=== PATIENT | male | born 1955 | race Caucasian/White ===

== ENCOUNTER 2016-07-28 09:41 | Inpatient (IN) | payer OTHER ==
[~2016-07-28] VITALS: Ht 185.4 cm; Wt 83.4 kg
[2016-07-28 10:12] VITALS: BP 129/88; PULSE 92; RESP 20; TEMP 98.3; O2SAT 95
[2016-07-28 10:27] LABS: AUTOMATED NEUTROPHIL # 8.5 TH/MM3 (1.8-7.7); BASOPHIL % 0.4 % (0.0-2.0); EOSINOPHIL # 0.1 TH/MM3 (0-0.4); EOSINOPHIL % 0.9 % (0.0-4.0); HEMATOCRIT 41.8 % (39.0-51.0); HEMO FLAGS DIFF FINAL; LYMPH % 18.5 % (9.0-44.0); LYMPHOCYTE # 2.2 TH/MM3 (1.0-4.8); MEAN CELL VOLUME 87.8 FL (80.0-100.0); MEAN CORPUSCULAR HEMOGLOBIN 30.4 PG (27.0-34.0); MEAN CORPUSCULAR HGB CONC 34.6 % (32.0-36.0); NEUT % 72.2 % (16.0-70.0); PLATELET COUNT 187 TH/MM3 (150-450); RED BLOOD COUNT 4.76 MIL/MM3 (4.50-5.90); RED CELL DISTRIBUTION WIDTH 13.3 % (11.6-17.2); WHITE BLOOD COUNT 11.8 TH/MM3 (4.0-11.0)
[2016-07-28 10:40] LABS: ALT (GPT) 32 U/L (12-78); ANION GAP 7 MEQ/L (5-15); AST (GOT) 16 U/L (15-37); BICARBONATE 25.6 MEQ/L (21.0-32.0); BLOOD UREA NITROGEN 19 MG/DL (7-18); CHLORIDE 106 MEQ/L (98-107); GLOMERULAR FILTRATION RATE 53 ML/MIN (>89); SODIUM (NA) 139 MEQ/L (136-145)
[2016-07-28 10:43] LABS: ALKALINE PHOSPHATASE 71 U/L (45-117); TOTAL BILIRUBIN ADULT 0.7 MG/DL (0.2-1.0)
--- NOTE | 2016-07-28 10:53 | PD ---
HPI Chief Complaint: Psychiatric Symptoms Time Seen by Provider: 09:57 Travel History International Travel<30 days: No Contact w/Intl Traveler<30days: No Traveled to known affect area: No History of Present Illness HPI Patient 60-year-old male presents emergency department on Cabrera act. Patient has a history of dementia and therefore most of the history is obtained from medical records and Cabrera act form. Apparently the patient has been wandering in his usp and has been "exit seeking". His Cabrera acted by clinical psychologist today for fears of patient being gravely disabled and imminent self -harm. He also has a form with him from the usp is that she's been discharged. Patient is oriented to self only. Denies any physical complaints: Chest pain shortness of breath abdominal pain nausea vomiting diarrhea extremity pain. PFSH Past Medical History Diabetes: Yes Patient Takes Glucophage: Yes Parkinson's Disease: Yes Psychiatric: Yes Tetanus Vaccination: < 5 Years Past Surgical History Surgical History: No Previous Surgery Social History Alcohol Use: No Tobacco Use: No Substance Use: No Allergies-Medications (Allergen,Severity, Reaction): Coded Allergies: No Known Allergies (Unverified , 07/28/16) Reported Meds & Prescriptions Reported Meds & Active Scripts Active Reported Tylenol (Acetaminophen) 325 Mg Tab 650 Mg PO Q4H PRN Thera M Plus (Multivitamins/Minerals Therapeutic) 1 Tab 1 Tab PO DAILY Seroquel Xr (Quetiapine Fumarate) 1 Each [id number] 25 Mg PO HS Colace Clear (Docusate Sodium) 50 Mg Cap 100 Mg PO DAILY Cymbalta DR (Duloxetine HCl) 60 Mg Capdr 60 Mg PO DAILY Carbidopa-Levodopa 25-100 Mg Tab 1 Tab PO Q8HR Aspir-81 (Aspirin) 81 Mg Tabdr 81 Mg PO DAILY Amlodipine (Amlodipine Besylate) 10 Mg Tab 10 Mg PO DAILY Ativan (Lorazepam) 0.5 Mg Tab 0.5 Mg PO TID PRN Lactulose Liq (Lactulose) 10 Gm/15 Ml Soln 60 Ml PO Q12HR Review of Systems ROS Limitations: Other: (dementia) Physical Exam Narrative GENERAL: Well-developed well-nourished no apparent distress. SKIN: No bruising or lacerations no wounds on his person. HEAD: Atraumatic. Normocephalic. EYES: Pupils equal and round. No scleral icterus. No injection or drainage. ENT: No nasal bleeding or discharge. Mucous membranes pink and moist. NECK: Trachea midline. No JVD. CARDIOVASCULAR: Regular rate and rhythm. No murmur appreciated. RESPIRATORY: No accessory muscle use. Clear to auscultation. Breath sounds equal bilaterally. GASTROINTESTINAL: Abdomen soft, non-tender, nondistended. Hepatic and splenic margins not palpable. MUSCULOSKELETAL: No obvious deformities. No clubbing. No cyanosis. No edema. NEUROLOGICAL: Awake and alert oriented to self only, follows commands in all 4 extremities.. No obvious cranial nerve deficits. Motor grossly within normal limits. Normal speech. PSYCHIATRIC: Flat affect, no insight Data Data Last Documented VS Vital Signs Date Time Temp Pulse Resp B/P Pulse Ox O2 Delivery O2 Flow Rate FiO2 07/28/16 12:27 80 20 130/78 97 07/28/16 10:12 98.3 Orders Complete Blood Count With Diff (07/28/16 09:57) Comprehensive Metabolic Panel (07/28/16 09:57) Psych Screen (07/28/16 09:57) Drug Screen, Random Urine (07/28/16 09:57) Alcohol (Ethanol) (07/28/16 09:57) Labs Laboratory Tests Test 07/28/16 10:15 White Blood Count 11.8 TH/MM3 Red Blood Count 4.76 MIL/MM3 Hemoglobin 14.5 GM/DL Hematocrit 41.8 % Mean Corpuscular Volume 87.8 FL Mean Corpuscular Hemoglobin 30.4 PG Mean Corpuscular Hemoglobin 34.6 % Concent Red Cell Distribution Width 13.3 % Platelet Count 187 TH/MM3 Mean Platelet Volume 9.2 FL Neutrophils (%) (Auto) 72.2 % Lymphocytes (%) (Auto) 18.5 % Monocytes (%) (Auto) 8.0 % Eosinophils (%) (Auto) 0.9 % Basophils (%) (Auto) 0.4 % Neutrophils # (Auto) 8.5 TH/MM3 Lymphocytes # (Auto) 2.2 TH/MM3 Monocytes # (Auto) 0.9 TH/MM3 Eosinophils # (Auto) 0.1 TH/MM3 Basophils # (Auto) 0.0 TH/MM3 CBC Comment DIFF FINAL Differential Comment Sodium Level 139 MEQ/L Potassium Level 4.0 MEQ/L Chloride Level 106 MEQ/L Carbon Dioxide Level 25.6 MEQ/L Anion Gap 7 MEQ/L Blood Urea Nitrogen 19 MG/DL Creatinine 1.37 MG/DL Estimat Glomerular Filtration 53 ML/MIN Rate Random Glucose 110 MG/DL Calcium Level 8.9 MG/DL Total Bilirubin 0.7 MG/DL Aspartate Amino Transf 16 U/L (AST/SGOT) Alanine Aminotransferase 32 U/L (ALT/SGPT) Alkaline Phosphatase 71 U/L Total Protein 7.7 GM/DL Albumin 4.0 GM/DL Ethyl Alcohol Level LESS THAN 3 MG/DL MDM Medical Decision Making Medical Screen Exam Complete: Yes Emergency Medical Condition: Yes Differential Diagnosis Parkinsonian dementia, Cabrera act, anemia, urinary tract infection. Narrative Course Patient 60-year-old male presents emergency department on Cabrera act for wandering. Patient has a Cabrera act filled out by clinical psychologist. He has a history of parkinsonian dementia and is unable to give any of his own history. He is oriented to self only. He is no sign symptoms of medical condition that warrants further workup at this time. He is medically cleared for psychiatric evaluation and disposition Diagnosis Primary Impression: Parkinson's disease dementia Qualified Code: G20 - Dementia due to Parkinson's disease with behavioral disturbance Condition: Stable Eleazar Stevens MD Jul 28, 2016 10:53 Eleazar Stevens MD Jul 28, 2016 10:53
[2016-07-28 12:27] VITALS: BP 130/78; PULSE 80; RESP 20; O2SAT 97
[2016-07-28] MEDS ORDERED: LORA-392 PO (13:03)
[2016-07-28] MEDS ORDERED: CYMB60CA PO (13:03)
[2016-07-28] MEDS ORDERED: THERM PO (13:03)
[2016-07-28] MEDS ORDERED: DOCU1CAP21 PO (13:03)
[2016-07-28] MEDS ORDERED: LACT10SO PO (13:03)
[2016-07-28] MEDS ORDERED: QUET-1 PO (13:03)
[2016-07-28] MEDS ORDERED: CARB25TA9 PO (13:03)
[2016-07-28] MEDS ORDERED: AMLO10TA2 PO (13:03)
[2016-07-28] MEDS ORDERED: ASPI81TA81 PO (13:03)
[2016-07-28] MEDS ORDERED: TYLE325T PO (13:03)
[2016-07-28] MEDS ORDERED: LORazepam 1 MG TAB PO PRN (15:00)
[2016-07-28] MEDS ORDERED: LORazepam 0.5 MG TAB PO PRN (15:00)
[2016-07-28] MEDS ORDERED: LORazepam 2 MG/ML VIAL IM PRN ×2 (15:00)
[2016-07-28] MEDS ORDERED: ACETAMINOPHEN 325 MG TAB PO PRN (15:00)
[2016-07-28] MEDS ORDERED: ALUMINUM/MAGNESIUM/SIMETH 30 ML CUP PO PRN (15:00)
[2016-07-28] MEDS ORDERED: MAGNESIUM HYDROXIDE SUSP 30 ML CUP PO PRN (15:00)
--- NOTE | 2016-07-28 15:08 | HHI.HP ---
Provisional Diagnosis Admission Date [place] I. Dementia with behavioral disturbance Certification of Person's Competence To Provide Express and Informed Consent I have personally examined oJhnathan Rose , a person being served at [facility] on, Jul 28, 2016 14:54. Express and informed consent means consent voluntarily given in writing, by a competent person, after sufficient explanation and disclosure of the subject matter involved to enable the person to make a knowing and willful decision without any element of force, fraud, deceit, duress, or other form of constraint or coercion. This person is 18 years of age or older, is not now known to be incompetent to consent to treatment with a guardian advocate, and does not have a health care surrogate or proxy currently making medical treatment decisions. I have found this person to be one of the following: [] Competent to provide express and informed consent, as defined above, for voluntary admission to this facility and is competent to provide express and informed consent for treatment. He/she has the consistent capacity to make well reasoned, willful, and knowing decisions concerning his or her medical or mental health treatment. The person fully and consistently understands the purpose of the admission for examination/placement and is fully capable of personally exercising all rights assured [place] [X] Incompetent to provide express and informed consent to voluntary admission, and this is incompetent to provide express and informed consent to treatment. The person must be transferred to involuntary status and a petition for a guardian advocate filed with the Circuit Court. [] Refusing to provide express and informed consent to voluntary admission but is competent to provide express and informed consent for treatment. The person must be discharged or transferred to involuntary status. Form shall be completed within 24 hours of a person's arrival at the receiving facility and filed in the clinical record of each person: 1. Admitted on a voluntary basis 2. Permitted to provide express and informed consent to his/her own treatment 3. Allowed to transfer from involuntary to voluntary status 4. Prior to permitting a person to consent to his or her own treatment after having been previously found incompetent to consent to treatment. History of Present Illness Capacity: Lacks Capacity HPI This is a 60-year-old male with a history of Alzheimer's disease, Parkinson's disease, diabetes and possibly bipolar disorder, admitted from [facility] under a Cabrera act. There are reports of his behavior being dangerous to himself and that he fell over a railing today and has been seeking the exits of the facility. The [facility] does not want to take him back and therefore he is unable to care for himself. He is a very poor historian and states he wants to return to [place] where he had a home. He does not have a memory of what transpired this morning that got him Cabrera acted. He is disoriented to time, date, place and situation. Many times he does not respond to questions at all. He is confused and demonstrating impaired concentration as well as memory function. The patient is unable to contract for safety. In fact, this physician finds that he is incompetent to be treated voluntarily and will initiate the involuntary placement to go with his Cabrera act so as to provide a guardian advocate. Review of Systems ROS Limitations: Clinical Condition, Poor Historian Past Psych History Psychological trauma history No psychological trauma and patient reportedly has a history of bipolar disorder. Violence risk - others (6 mos) Minimal risk to others Violence risk - self (6 mos) Moderate to severe risk to self. Substance Abuse History Drugs/Alcohol past 12 months Denied for alcoholism or drug abuse. Past Family Social History Coded Allergies: No Known Allergies (Unverified , 07/28/16) Reported Medications Acetaminophen (Tylenol)325 Mg [id number] Mg PO Q4H PRN (PAIN 1 TO 10 AND/OR AGITATION) Ref 0 07/28/16 Multiple Vitamins W/ Minerals (Thera M Plus)1 Tab1 Tab PO DAILY Ref 0 07/28/16 Quetiapine Fumarate (Seroquel Xr)1 Each [id number] Mg PO HS 07/28/16 Docusate Sodium (Colace Clear)50 Mg Khi915 Mg PO DAILY 07/28/[address] (Cymbalta DR)60 Mg Capdr60 Mg PO DAILY #30 CAP Ref 0 07/28/16 Carbidopa-Levodopa 25-100 Mg Tab1 Tab PO Q8HR #90 TAB Ref 0 07/28/[address] (Aspir-81)81 Mg Tabdr81 Mg PO DAILY 07/28/16 Amlodipine 10 Mg Tab10 Mg PO DAILY #30 TAB Ref 0 07/28/16 Lorazepam (Ativan)0.5 Mg Tab0.5 Mg PO TID PRN (ANXIETY AND/OR AGITATION) Ref 0 07/28/16 Lactulose Liq 10 Gm/15 Ml Soln60 Ml PO Q12HR Ref 0 07/28/16 Current Medications Medications (Trade) Dose Ordered Sig/Sofia Route Start Time Stop Time Status Last Admin (Ativan) 1 mg Q6H PRN PO 07/28/16 15:00 UNV (Ativan Inj) 1 mg Q6H PRN IM 07/28/16 15:00 UNV (Ativan) 0.5 mg Q12H PRN PO 07/28/16 15:00 UNV (Ativan Inj) 0.5 mg Q12H PRN IM 07/28/16 15:00 UNV (Tylenol) 650 mg Q4H PRN PO 07/28/16 15:00 UNV (Milk Of Magnesia Liq) 30 ml DAILY PRN PO 07/28/16 15:00 UNV (Mag-Al Plus Susp Liq) 30 ml Q6H PRN PO 07/28/16 15:00 UNV Family History Family psychiatric history is unknown. Social History Patient does not use alcohol or drugs. He is not . He does have supportive family members but they lived in [place] and include his cousin. Patient has been unemployed for years. Patient's Strengths (min. 2) Patient is resilient and has access to healthcare. Physical Exam GENERAL: SKIN: Warm and dry. HEAD: Normocephalic. EYES: No scleral icterus. No injection or drainage. NECK: Supple, trachea midline. No JVD or lymphadenopathy. CARDIOVASCULAR: Regular rate and rhythm without murmurs, gallops, or rubs. RESPIRATORY: Breath sounds equal bilaterally. No accessory muscle use. GASTROINTESTINAL: Abdomen soft, non-tender, nondistended. MUSCULOSKELETAL: No cyanosis, or edema. BACK: Nontender without obvious deformity. No CVA tenderness. Vital Signs Vital Signs Date Time Temp Pulse Resp B/P Pulse Ox O2 Delivery O2 Flow Rate FiO2 07/28/16 12:27 80 20 130/78 97 07/28/16 10:12 98.3 Mental Status Examination Speech: Hesitant Orientation: Person Memory: Impaired (describe) Thought Process: Goal Directed, Other Thought Content: Bizarre thinking Hallucination Type: None Attention and Concentration: Easily Distracted Suicidal Ideation: No Previous Suicide Attempts: No Homicidal Ideation: No Previous Homicide Attempts: No Insight: Poor Judgment: Unrealistic Affect: Other Affect if Inappropriate: Blunt Mood: Other Motor Activity: Abnormal gait-specify Assessment & Plan Problem List: (1) Dementia with behavioral problem ICD Code: F03.91 Assessment & Plan Estimated LOS: 7 days this is a 60-year-old male with multiple medical problems including Alzheimer's dementia, Parkinson's disease, diabetes and possible bipolar disorder. The patient is obviously demented, disoriented, confused and unable to care for himself. He apparently fell over a railing today and has been seeking to exit the building without either consent or supervision. Patient remains disoriented and easily confused and [facility] will not take him back. He is therefore unable to care for himself and in fact poses a significant risk of harm to himself. This is felt to be the result of his dementia and confusion as well as his impulsive and dangerous behavior. This physician is ordering laboratory workup including a CBC, electrolytes, thyroid function to assess whether these indices are abnormal and contributing to his confusion and disorientation. We will also check his thyroid function as it too may exacerbate his confusion. Finally, his vitamin D and vitamin B 12 are also being checked to evaluate whether they are contributing to his confusion. He is receiving an EKG evaluation to make sure his psychotropic medicines are not interfering with his cardiac conduction system. This physician spoke to the nurse regarding the patient's current and recent behavior , which appears to be problematic. This physician is also asking the clinical case manager to call the family for more information. Finally, an occupational therapy consult is being ordered to determine the patient's ability to care for self. Vitor Ambriz MD Jul 28, 2016 15:08
[2016-07-28 15:21] VITALS: BP 132/69
[2016-07-28] MEDS ORDERED: DEXTROSE 50% IN WATER 50 ML VIAL(D50) IV PRN (16:45)
[2016-07-28] MEDS ORDERED: GLUCAGON 1 MG/ML VIAL OTHER PRN (16:45)
--- NOTE | 2016-07-28 17:49 | PD.CONS ---
[facility] By [facility]. Ambriz Reason for Consult Evaluate and manage Parkinson's disease and diabetes mellitus Primary Care Physician Unknown Diagnoses: History of Present Illness This is a 60-year-old male who presents to the emergency department under Cabrera act. Patient has a history of dementia and bipolar disorder and most of the history is obtained from medical records and Cabrera act form which states patient has been " exit seeking, unable to redirect and combative". Patient does not recall events. States he is fine without complaints. He denies any medical conditions. Records show he has history of PD on carbidopa and diabetes mellitus. According to the Dr. Ambriz, patient had a recent fall which the patient confirms about a week ago. No apparent injuries. Denies any headache, dizziness, nausea, numbness, focal weakness, chest pain, shortness of breath, abdominal pain, UTI symptoms and diarrhea Review of Systems Except as stated in HPI: all other systems reviewed are Neg Past Family Social History Allergies: Coded Allergies: No Known Allergies (Unverified , 07/28/16) Past Medical History As previously mentioned Past Surgical History Denies Reported Medications Tylenol Thera M Plus (Multivitamins/Minerals Therapeutic) 1 Tab 1 Tab PO DAILY Seroquel Xr (Quetiapine Fumarate) 1 Each [id number] 25 Mg PO HS Colace Clear (Docusate Sodium) 50 Mg Cap 100 Mg PO DAILY Cymbalta DR (Duloxetine HCl) 60 Mg Capdr 60 Mg PO DAILY Carbidopa-Levodopa 25-100 Mg Tab 1 Tab PO Q8HR Aspir-81 (Aspirin) 81 Mg Tabdr 81 Mg PO DAILY Amlodipine (Amlodipine Besylate) 10 Mg Tab 10 Mg PO DAILY Ativan (Lorazepam) 0.5 Mg Tab 0.5 Mg PO TID PRN Lactulose Liq (Lactulose) 10 Gm/15 Ml Soln 60 Ml PO Q12HR Family History Denies Social History Does not smoke or drink Physical Exam Vital Signs Vital Signs Date Time Temp Pulse Resp B/P Pulse Ox O2 Delivery O2 Flow Rate FiO2 07/28/16 15:21 98 132/69 99 07/28/16 12:27 80 20 130/78 97 07/28/16 10:12 98.3 92 20 129/88 95 Physical Exam GENERAL: This is a well-nourished, well-developed patient, in no apparent distress. SKIN: No rashes, ecchymoses or lesions. Cool and dry. Excoriations in the gluteal area HEAD: Atraumatic. Normocephalic. No temporal or scalp tenderness. EYES: Pupils equal round and reactive. Extraocular motions intact. No scleral icterus. No injection or drainage. ENT: Nose without bleeding, purulent drainage or septal hematoma. Throat without erythema, tonsillar hypertrophy or exudate. Uvula midline. Airway patent. NECK: Trachea midline. No JVD or lymphadenopathy. Supple, nontender, no meningeal signs. CARDIOVASCULAR: Regular rate and rhythm without murmurs, gallops, or rubs. RESPIRATORY: Clear to auscultation. Breath sounds equal bilaterally. No wheezes , rales, or rhonchi. GASTROINTESTINAL: Abdomen soft, non-tender, nondistended. No guarding. MUSCULOSKELETAL: Extremities without clubbing, cyanosis, or edema. No joint tenderness, effusion, or edema noted. No calf tenderness. Negative Homans sign bilaterally. NEUROLOGICAL: Awake and alert. Cranial nerves II through XII intact. Motor and sensory grossly within normal limits. Five out of 5 muscle strength in all muscle groups. Normal speech. Calm And cooperative Laboratory Laboratory Tests Test 07/28/16 10:15 White Blood Count 11.8 Red Blood Count 4.76 Hemoglobin 14.5 Hematocrit 41.8 Mean Corpuscular Volume 87.8 Mean Corpuscular Hemoglobin 30.4 Mean Corpuscular Hemoglobin 34.6 Concent Red Cell Distribution Width 13.3 Platelet Count 187 Mean Platelet Volume 9.2 Neutrophils (%) (Auto) 72.2 Lymphocytes (%) (Auto) 18.5 Monocytes (%) (Auto) 8.0 Eosinophils (%) (Auto) 0.9 Basophils (%) (Auto) 0.4 Neutrophils # (Auto) 8.5 Lymphocytes # (Auto) 2.2 Monocytes # (Auto) 0.9 Eosinophils # (Auto) 0.1 Basophils # (Auto) 0.0 CBC Comment DIFF FINAL Differential Comment Sodium Level 139 Potassium Level 4.0 Chloride Level 106 Carbon Dioxide Level 25.6 Anion Gap 7 Blood Urea Nitrogen 19 Creatinine 1.37 Estimat Glomerular Filtration 53 Rate Random Glucose 110 Calcium Level 8.9 Total Bilirubin 0.7 Aspartate Amino Transf 16 (AST/SGOT) Alanine Aminotransferase 32 (ALT/SGPT) Alkaline Phosphatase 71 Total Protein 7.7 Albumin 4.0 Ethyl Alcohol Level LESS THAN 3 Result Diagram: 07/28/16 1015 07/28/16 1015 Imaging EKG tracing interpreted by me with sinus rhythm st-t changes Assessment and Plan Problem List: (1) Dementia with behavioral problem ICD Code: F03.91 Status: Acute Assessment and Plan This is a 60-year-old male who presents to the emergency department under Cabrera act. Patient has a history of dementia and bipolar disorder and most of the history is obtained from medical records and Cabrera act form which states patient has been " exit seeking, unable to redirect and combative". Consultation has been requested to evaluate and manage PD and diabetes mellitus. Cabrera act. Recent history of dementia and bipolar disorder. Further management per psychiatry. Obtain urinalysis and TSH Mild leukocytosis. Repeat CBC in the morning Acute kidney injury. Obtain CK. Encourage oral hydration. Avoid nephrotoxins and repeat BMP and magnesium in the morning History of elevated ammonia. Continue lactulose titrate to 3 loose stools a day Recent fall with a history of Parkinson disease. Fall precautions. Physical therapy evaluation. Continue carbidopa Diabetes mellitus. Monitor fingersticks with sliding scale coverage. Obtain A1c Hypertension. Stable continue Norvasc and continue to monitor DVT prophylaxis patient ambulatory. Discussed Condition With Patient and nursing staff Cruz Sol MD Jul 28, 2016 17:49
[2016-07-28 19:01] VITALS: BP 129/84; PULSE 90; RESP 16; TEMP 97; O2SAT 97
[2016-07-28] MEDS: INSULIN ASPART SUPPLEMENTAL SCALE SQ SCH (21:00)
[2016-07-28] MEDS: CARBIDOPA/LEVODOPA 25 MG/100 MG TAB PO SCH (21:59)
[2016-07-28] MEDS: LACTULOSE SYRUP 20 GM/30 ML CUP PO SCH (21:59)
[2016-07-28] MEDS: QUEtiapine FUMARATE 25 MG TAB PO SCH (21:59)
[2016-07-28 22:54] LABS: BACTERIA, URINE RARE /hpf; BLOOD, URINE NEG (NEG); COMMENT (UR) CULT NOT INDICATED; CULTURE IF INDICATED CULT NOT INDICATED; GLUCOSE,URINE NEG (NEG); KETONE, URINE NEG (NEG); NITRITE,URINE NEG (NEG); SQUAMOUS EPITHELIAL CELL URINE <1 /hpf (0-5); URINE COLOR LIGHT-YELLOW (YELLW/STRAW)
[2016-07-28 22:56] LABS: AMPHETAMINE, URINE NEG (NEG); BARBITURATES, URINE NEG (NEG); COCAINE, URINE NEG (NEG)
[2016-07-29 05:38] VITALS: BP 135/81; PULSE 65; RESP 16; TEMP 98; O2SAT 97
[2016-07-29] MEDS: INSULIN ASPART SUPPLEMENTAL SCALE SQ SCH ×4 (06:05→21:00)
[2016-07-29] MEDS: CARBIDOPA/LEVODOPA 25 MG/100 MG TAB PO SCH ×3 (06:21→21:04)
[2016-07-29 09:07] LABS: AUTOMATED NEUTROPHIL # 6.1 TH/MM3 (1.8-7.7); BASOPHIL % 0.3 % (0.0-2.0); EOSINOPHIL # 0.1 TH/MM3 (0-0.4); EOSINOPHIL % 1.4 % (0.0-4.0); HEMATOCRIT 40.7 % (39.0-51.0); HEMO FLAGS DIFF FINAL; LYMPH % 22.8 % (9.0-44.0); LYMPHOCYTE # 2.1 TH/MM3 (1.0-4.8); MEAN CELL VOLUME 88.7 FL (80.0-100.0); MEAN CORPUSCULAR HEMOGLOBIN 30.7 PG (27.0-34.0); MEAN CORPUSCULAR HGB CONC 34.6 % (32.0-36.0); MONO % 10.2 % (0.0-8.0); NEUT % 65.3 % (16.0-70.0); PLATELET COUNT 164 TH/MM3 (150-450); RED BLOOD COUNT 4.58 MIL/MM3 (4.50-5.90); RED CELL DISTRIBUTION WIDTH 13.2 % (11.6-17.2); WHITE BLOOD COUNT 9.3 TH/MM3 (4.0-11.0)
[2016-07-29] MEDS: ASPIRIN EC 81 MG TABEC PO SCH (09:27)
[2016-07-29] MEDS: LACTULOSE SYRUP 20 GM/30 ML CUP PO SCH ×2 (09:27→21:04)
[2016-07-29] MEDS: DULoxetine HCl DR 60 MG CAP PO SCH (09:27)
[2016-07-29] MEDS: DOCUSATE SODIUM 100 MG CAP PO SCH (09:28)
[2016-07-29 09:31] LABS: ALT (GPT) 10 U/L (12-78); ANION GAP 7 MEQ/L (5-15); BICARBONATE 29.1 MEQ/L (21.0-32.0); BLOOD UREA NITROGEN 20 MG/DL (7-18); CHLORIDE 105 MEQ/L (98-107); POTASSIUM 3.9 MEQ/L (3.5-5.1); SODIUM (NA) 141 MEQ/L (136-145)
[2016-07-29 09:32] LABS: AST (GOT) 17 U/L (15-37); GLOMERULAR FILTRATION RATE 56 ML/MIN (>89)
[2016-07-29 09:57] LABS: ALKALINE PHOSPHATASE 66 U/L (45-117); HDL CHOLESTEROL 41.1 MG/DL (40.0-60.0); LDL CHOLESTEROL 74 MG/DL (0-99); TOTAL BILIRUBIN ADULT 0.8 MG/DL (0.2-1.0)
--- NOTE | 2016-07-29 12:59 | HHI.PR ---
Subjective Remarks Follow up on patient with dementia, bipolar disorder, PD and DM. Patient seen and examined today. Patient reports some upper mid back pain this morning while he was showering but this has resolved. Denies any injury to the area. Nontender to palpation presently. Reports he slept well. Denies any fever/ chills, N/V, chest pain, SOB or abdominal pain. Objective Vitals Vital Signs Date Time Temp Pulse Resp B/P Pulse Ox O2 Delivery O2 Flow Rate FiO2 07/29/16 05:38 98.0 65 16 135/81 97 07/28/16 19:01 97.0 90 16 129/84 97 07/28/16 15:21 98 132/69 99 I/O 07/28/16 07/28/16 07/28/16 07/29/16 07/29/16 07/29/16 07:00 15:00 23:00 07:00 15:00 23:00 Intake Total 0 ml 240 ml Balance 0 ml 240 ml Intake Oral 0 ml 240 ml # Voids 1 Result Diagram: 07/29/16 0810 07/29/16 0810 Objective Remarks GENERAL: This is a well-nourished, well-developed patient, in no apparent distress. Awake and alert. Sitting on bed. SKIN: No rashes, ecchymoses or lesions. Cool and dry. HEAD: Atraumatic. Normocephalic. EYES: Pupils equal round and reactive. Extraocular motions intact. No scleral icterus. No injection or drainage. CARDIOVASCULAR: Regular rate and rhythm without murmurs, gallops, or rubs. RESPIRATORY: Clear to auscultation. Breath sounds equal bilaterally. No wheezes , rales, or rhonchi. GASTROINTESTINAL: Abdomen soft, non-tender, nondistended. No guarding. MUSCULOSKELETAL: Extremities without clubbing, cyanosis, or edema. No joint tenderness, effusion, or edema noted. No calf tenderness. Upper mid back/ thoracic area NTTP. No deformity appreciated on exam. NEUROLOGICAL: Awake and alert. Able to move all extremities. Normal speech. Calm And cooperative Medications and IVs Current Medications Medications (Trade) Dose Ordered Sig/Sofia Route Start Time Stop Time Status Last Admin (Ativan) 1 mg Q6H PRN PO 07/28/16 15:00 (Ativan Inj) 1 mg Q6H PRN IM 07/28/16 15:00 (Tylenol) 650 mg Q4H PRN PO 07/28/16 15:00 (Milk Of Magnesia Liq) 30 ml DAILY PRN PO 07/28/16 15:00 (Norvasc) 10 mg DAILY PO 07/29/16 09:00 07/29/16 09:28 (Ecotrin Ec) 81 mg DAILY PO 07/29/16 09:00 07/29/16 09:27 (Sinemet 25-100 Mg) 1 tab Q8HR PO 07/28/16 22:00 07/29/16 06:21 (Cymbalta Dr) 60 mg DAILY PO 07/29/16 09:00 07/29/16 09:27 (Lactulose Liq) 30 ml Q12HR PO 07/28/16 21:00 07/29/16 09:27 (Colace) 100 mg DAILY PO 07/29/16 09:00 07/29/16 09:28 (SEROquel) 25 mg HS PO 07/28/16 21:00 07/28/16 21:59 (D50w (Vial) Inj) 50 ml UNSCH PRN IV 07/28/16 16:45 (Glucagon Inj) 1 mg UNSCH PRN OTHER 07/28/16 16:45 A/P Problem List: (1) Dementia with behavioral problem ICD Code: F03.91 Status: Acute Assessment and Plan 60-year-old male who presents to the emergency department under Cabrera act. Patient has a history of dementia and bipolar disorder and most of the history is obtained from medical records and Cabrera act form which states patient has been " exit seeking, unable to redirect and combative". Consultation has been requested to evaluate and manage PD and diabetes mellitus. Dementia/Bipolar disorder with behavioral disturbance - Management per psychiatric team - TSH within normal limits Mild Leukocytosis - resolved - wbc 11.8 --> 9.3 - likely reactive/stress ELPIDIO - improved, creatinine 1.37 --> 1.30 - CK 115 - continue to encourage po hydration - avoid nephrotoxic agents - monitor BMP as indicated DM - A1c pending - Continue with Accuchecks - ISS - blood sugar well controlled with range 92 to 99 HTN - controlled - continue on Norvasc - continue to monitor BP and adjust treatment as indicated Upper mid back pain - no trauma - brief episode, now resolved - monitor Vitamin D deficiency - begin po supplementation - follow up with PCP to repeat levels in 4 weeks DVT prophylaxis - patient is ambulatory Discussed with nursing staff, patient and Felicita Santos Jul 29, 2016 12:59
[2016-07-29] MEDS ORDERED: CHOLECALCIFEROL (VIT D3) 1000 UNIT TAB PO ONE (13:00)
--- NOTE | 2016-07-29 13:51 | HHI.PYPN ---
Subjective Remarks Pt seen and discussed with staff. He has been calm and cooperative on unit. He is confused and requires redirection but not combative. He denies SI or urges to engage in self-injurious behavior. "My grandmother told me that was a sin." Cooperative with medications. No reported side effects. Objective Alert: Yes [place]: Person, Place ( "hospital") Mood: Calm Affect: Flat Memory Intact: Comment (impaired) Hallucinations: Other (does not appear internally stimulated) Delusions: No Delusion Type: Other (none) Suicidal: Ideation (denies) Homicidal: Ideation (denies) Insight/Judgment poor Labs Test 07/28/16 07/29/16 21:15 08:10 Urine Color LIGHT-YELLOW Urine Turbidity CLEAR Urine pH 7.0 Urine Specific [place] 1.009 Urine Protein NEG mg/dL Urine Glucose (UA) NEG mg/dL Urine Ketones NEG mg/dL Urine Occult Blood NEG Urine Nitrite NEG Urine Bilirubin NEG Urine Urobilinogen LESS THAN 2.0 MG/DL Urine Leukocyte Esterase NEG Urine RBC 4 /hpf Urine WBC 2 /hpf Urine Squamous Epithelial <1 /hpf Cells Urine Bacteria RARE /hpf Microscopic Urinalysis Comment CULT NOT INDICATED Urine Opiates Screen NEG Urine Barbiturates Screen NEG Urine Amphetamines Screen NEG Urine Benzodiazepines Screen NEG Urine Cocaine Screen NEG Urine Cannabinoids Screen NEG White Blood Count 9.3 TH/MM3 Red Blood Count 4.58 MIL/MM3 Hemoglobin 14.1 GM/DL Hematocrit 40.7 % Mean Corpuscular Volume 88.7 FL Mean Corpuscular Hemoglobin 30.7 PG Mean Corpuscular Hemoglobin 34.6 % Concent Red Cell Distribution Width 13.2 % Platelet Count 164 TH/MM3 Mean Platelet Volume 9.4 FL Neutrophils (%) (Auto) 65.3 % Lymphocytes (%) (Auto) 22.8 % Monocytes (%) (Auto) 10.2 % Eosinophils (%) (Auto) 1.4 % Basophils (%) (Auto) 0.3 % Neutrophils # (Auto) 6.1 TH/MM3 Lymphocytes # (Auto) 2.1 TH/MM3 Monocytes # (Auto) 1.0 TH/MM3 Eosinophils # (Auto) 0.1 TH/MM3 Basophils # (Auto) 0.0 TH/MM3 CBC Comment DIFF FINAL Differential Comment Sodium Level 141 MEQ/L Potassium Level 3.9 MEQ/L Chloride Level 105 MEQ/L Carbon Dioxide Level 29.1 MEQ/L Anion Gap 7 MEQ/L Blood Urea Nitrogen 20 MG/DL Creatinine 1.30 MG/DL Estimat Glomerular Filtration 56 ML/MIN Rate Random Glucose 93 MG/DL Calcium Level 8.7 MG/DL Total Bilirubin 0.8 MG/DL Aspartate Amino Transf 17 U/L (AST/SGOT) Alanine Aminotransferase 10 U/L (ALT/SGPT) Alkaline Phosphatase 66 U/L Total Protein 7.1 GM/DL Albumin 3.7 GM/DL Triglycerides Level 99 MG/DL Cholesterol Level 135 MG/DL LDL Cholesterol 74 MG/DL HDL Cholesterol 41.1 MG/DL Cholesterol/HDL Ratio 3.28 RATIO Vitamin B12 Level 323 PG/ML 25-Hydroxy Vitamin D Total 23.2 ng/ML Thyroid Stimulating Hormone 1.200 uIU/ML 3rd Gen Vitals/IOs Vital Signs Date Time Temp Pulse Resp B/P Pulse Ox O2 Delivery O2 Flow Rate FiO2 07/29/16 05:38 98.0 65 16 135/81 97 Assessment & Plan Problem List: (1) Dementia with behavioral problem ICD Code: F03.91 Assessment & Plan Continue current tx plan. Estimated LOS: days Justification for Cont. Inpt. medication changes requiring observation, monitoring for safety Tatum Rey MD Jul 29, 2016 13:51
--- NOTE | 2016-07-29 15:05 | EKG ---
Date Performed: 07/28/2016 Time Performed: 15:31:26 PTAGE: 60 years EKG: Sinus rhythm NORMAL ECG NO PREVIOUS TRACING DOCTOR: Vitor Thomson Interpretating Date/Time 07/29/2016 15:03:33
--- NOTE | 2016-07-29 15:05 | EKG ---
Date Performed: 07/29/2016 Time Performed: 11:21:16 PTAGE: 60 years EKG: Sinus rhythm MINIMAL VOLTAGE CRITERIA FOR LVH, CONSIDER NORMAL VARIANT BORDERLINE ECG Since PREVIOUS TRACING 07/28/2016, no significant change. PREVIOUS TRACIN07/28/2016 15.31 DOCTOR: Vitor Thomson Interpretating Date/Time 07/29/2016 15:03:59
[2016-07-29 18:00] VITALS: BP 91/55; PULSE 100; RESP 16; TEMP 96.8; O2SAT 97
[2016-07-29] MEDS: QUEtiapine FUMARATE 25 MG TAB PO SCH (21:04)
[2016-07-30 05:55] VITALS: BP 121/77; PULSE 67; RESP 16; TEMP 98.2; O2SAT 97
[2016-07-30] MEDS: CARBIDOPA/LEVODOPA 25 MG/100 MG TAB PO SCH ×3 (06:11→21:00)
[2016-07-30] MEDS: INSULIN ASPART SUPPLEMENTAL SCALE SQ SCH ×4 (06:15→20:56)
[2016-07-30] MEDS: DULoxetine HCl DR 60 MG CAP PO SCH (09:29)
[2016-07-30] MEDS: ASPIRIN EC 81 MG TABEC PO SCH (09:29)
[2016-07-30] MEDS: DOCUSATE SODIUM 100 MG CAP PO SCH (09:29)
[2016-07-30] MEDS: CHOLECALCIFEROL (VIT D3) 1000 UNIT TAB PO SCH (09:29)
[2016-07-30] MEDS: LACTULOSE SYRUP 20 GM/30 ML CUP PO SCH ×2 (09:29→20:55)
[2016-07-30 10:04] LABS: HEMOGLOBIN A1b 0.8 %; HEMOGLOBIN Ao 86.2 %; HEMOGLOBIN LA1C 1.9 %; HEMOGLOBIN P3 3.4 %
--- NOTE | 2016-07-30 11:59 | HHI.PYPN ---
Subjective Remarks Pt seen and discussed with staff. Pt remains confused. He is somatically preoccupied and points repeatedly to different areas of his skin insisting that his skin has been scratched despite it being intact. No self-injurious behavior. No SI/HI Objective Alert: Yes [place]: Person Mood: Calm Affect: Flat Memory Intact: Comment (impaired) Hallucinations: Other (does not appear internally stimulated) Delusions: No Delusion Type: Other (none) Suicidal: Ideation (denies) Homicidal: Ideation (denies) Insight/Judgment poor Vitals/IOs Vital Signs Date Time Temp Pulse Resp B/P Pulse Ox O2 Delivery O2 Flow Rate FiO2 07/30/16 05:55 98.2 67 16 121/77 97 Intake and Output 07/29/16 07/29/16 07/30/16 08:00 16:00 00:00 Intake Total 240 ml 720 ml 1230 ml Balance 240 ml 720 ml 1230 ml Assessment & Plan Problem List: (1) Dementia with behavioral problem ICD Code: F03.91 Assessment & Plan continue current tx plan. Estimated LOS: days Justification for Cont. Inpt. severe impairments in self care, monitoring for safety Tatum Rey MD Jul 30, 2016 11:59
[2016-07-30 18:55] VITALS: BP 132/84; PULSE 73; RESP 18; TEMP 98.2
[2016-07-30] MEDS: QUEtiapine FUMARATE 25 MG TAB PO SCH (20:55)
[2016-07-31 06:00] VITALS: BP 132/80; PULSE 64; RESP 18; TEMP 97.3; O2SAT 97
[2016-07-31] MEDS: CARBIDOPA/LEVODOPA 25 MG/100 MG TAB PO SCH ×3 (06:13→22:19)
[2016-07-31] MEDS: INSULIN ASPART SUPPLEMENTAL SCALE SQ SCH ×4 (07:00→20:52)
[2016-07-31 08:34] LABS: BICARBONATE 29.8 MEQ/L (21.0-32.0); POTASSIUM 3.8 MEQ/L (3.5-5.1)
[2016-07-31] MEDS: DOCUSATE SODIUM 100 MG CAP PO SCH (10:36)
[2016-07-31] MEDS: ASPIRIN EC 81 MG TABEC PO SCH (10:36)
[2016-07-31] MEDS: CHOLECALCIFEROL (VIT D3) 1000 UNIT TAB PO SCH (10:36)
[2016-07-31] MEDS: DULoxetine HCl DR 60 MG CAP PO SCH (10:36)
[2016-07-31] MEDS: LACTULOSE SYRUP 20 GM/30 ML CUP PO SCH ×2 (10:36→20:52)
--- NOTE | 2016-07-31 14:45 | HHI.PR ---
Subjective Remarks Follow up on patient with dementia, bipolar disorder, PD and DM. Patient seen and examined today. Patient does not have any upper back pain today. He does report feeling tired and would like to take a nap. He denies any fever or chills. Denies any pain or discomfort. No shortness of breath or chest pain. No nausea vomiting or abdominal pain. Objective Vitals Vital Signs Date Time Temp Pulse Resp B/P Pulse Ox O2 Delivery O2 Flow Rate FiO2 07/31/16 06:00 97.3 64 18 132/80 97 07/30/16 18:55 98.2 73 18 132/84 I/O 07/30/16 07/30/16 07/30/16 07/31/16 07/31/16 07/31/16 07:00 15:00 23:00 07:00 15:00 23:00 Intake Total 0 ml 1080 ml 300 ml 480 ml Balance 0 ml 1080 ml 300 ml 480 ml Intake Oral 0 ml 1080 ml 300 ml 480 ml # Voids 1 2 3 Result Diagram: 07/29/16 0810 07/31/16 0720 Objective Remarks GENERAL: This is a well-nourished, well-developed patient, in no apparent distress. Awake and alert. Sitting up in his bed. SKIN: No rashes, ecchymoses or lesions. Cool and dry. HEAD: Atraumatic. Normocephalic. EYES: Pupils equal round and reactive. Extraocular motions intact. No scleral icterus. No injection or drainage. CARDIOVASCULAR: Regular rate and rhythm without murmurs, gallops, or rubs. RESPIRATORY: Clear to auscultation. Breath sounds equal bilaterally. No wheezes , rales, or rhonchi. GASTROINTESTINAL: Abdomen soft, non-tender, nondistended. No guarding. MUSCULOSKELETAL: Extremities without clubbing, cyanosis, or edema. No joint tenderness, effusion, or edema noted. No calf tenderness. No deformity appreciated on exam. NEUROLOGICAL: Awake and alert. Able to move all extremities. Normal speech. Medications and IVs Current Medications Medications (Trade) Dose Ordered Sig/Sofia Route Start Time Stop Time Status Last Admin (Ativan) 1 mg Q6H PRN PO 07/28/16 15:00 (Ativan Inj) 1 mg Q6H PRN IM 07/28/16 15:00 (Tylenol) 650 mg Q4H PRN PO 07/28/16 15:00 (Milk Of Magnesia Liq) 30 ml DAILY PRN PO 07/28/16 15:00 (Norvasc) 10 mg DAILY PO 07/29/16 09:00 07/31/16 10:36 (Ecotrin Ec) 81 mg DAILY PO 07/29/16 09:00 07/31/16 10:36 (Sinemet 25-100 Mg) 1 tab Q8HR PO 07/28/16 22:00 07/31/16 12:59 (Cymbalta Dr) 60 mg DAILY PO 07/29/16 09:00 07/31/16 10:36 (Lactulose Liq) 30 ml Q12HR PO 07/28/16 21:00 07/31/16 10:36 (Colace) 100 mg DAILY PO 07/29/16 09:00 07/31/16 10:36 (SEROquel) 25 mg HS PO 07/28/16 21:00 07/30/16 20:55 (D50w (Vial) Inj) 50 ml UNSCH PRN IV 07/28/16 16:45 (Glucagon Inj) 1 mg UNSCH PRN OTHER 07/28/16 16:45 (Vitamin D3) 1,000 units DAILY PO 07/30/16 09:00 07/31/16 10:36 A/P Problem List: (1) Dementia with behavioral problem ICD Code: F03.91 Status: Acute Assessment and Plan 60-year-old male who presents to the emergency department under Cabrera act. Patient has a history of dementia and bipolar disorder and most of the history is obtained from medical records and Cabrera act form which states patient has been " exit seeking, unable to redirect and combative". Consultation has been requested to evaluate and manage PD and diabetes mellitus. Dementia/Bipolar disorder with behavioral disturbance - Management per psychiatric team - TSH within normal limits Mild Leukocytosis - resolved - wbc 11.8 --> 9.3 - likely reactive/stress ELPIDIO - improving, creatinine 1.37 --> 1.30 --> 1.17 - CK 115 - continue to encourage po hydration - avoid nephrotoxic agents DM - A1c 5.4 - Continue with Accuchecks - ISS - blood sugar well controlled with range 92 to 123 HTN - controlled - continue on Norvasc - continue to monitor BP and adjust treatment as indicated Upper mid back pain - no trauma - brief episode, now resolved - monitor Vitamin D deficiency - Continue po supplementation - follow up with PCP to repeat levels in 4 weeks DVT prophylaxis - patient is ambulatory Patient is medically stable. We'll sign off for now. Please reconsult if needed. Discussed with nursing staff, patient and Felicita Santos Jul 31, 2016 14:45
--- NOTE | 2016-07-31 15:28 | HHI.PYPN ---
Subjective Remarks Patient discussed with treatment team, chart review, Patient seen in dayroom with floor staff,. Patient confused disoriented somewhat childlike and intrusive. But overall no behavioral issues. Compliant medication Dr. Rey is a first opinion petition supporting [employer] act, after seeing patient is mentioned above I agree. Patient meets criteria for involuntary psychiatric hospitalization under the Cabrera act thus I'll cosign second opinion petition supporting Cabrera act Review of Systems Except as stated in HPI: all other systems reviewed are Neg Objective Alert: Yes [place]: Person Mood: Calm Affect: Flat Memory Intact: Comment (impaired) Hallucinations: Other (does not appear internally stimulated) Delusions: No Delusion Type: Other (none) Suicidal: Ideation (denies) Homicidal: Ideation (denies) Insight/Judgment Very poor Labs Test 07/31/16 07:20 Sodium Level 143 MEQ/L Potassium Level 3.8 MEQ/L Chloride Level 107 MEQ/L Carbon Dioxide Level 29.8 MEQ/L Anion Gap 6 MEQ/L Blood Urea Nitrogen 17 MG/DL Creatinine 1.17 MG/DL Estimat Glomerular Filtration 63 ML/MIN Rate Random Glucose 96 MG/DL Calcium Level 8.2 MG/DL Vitals/IOs Vital Signs Date Time Temp Pulse Resp B/P Pulse Ox O2 Delivery O2 Flow Rate FiO2 07/31/16 06:00 97.3 64 18 132/80 97 Intake and Output 07/30/16 07/30/16 07/30/16 07:59 15:59 23:59 Intake Total 0 ml 1080 ml 780 ml Balance 0 ml 1080 ml 780 ml Assessment & Plan Problem List: (1) Dementia of Alzheimer's type with behavioral disturbance ICD Code: G30.8 Assessment & Plan Estimated LOS: days patient demented confused somewhat childlike, compliant medications Justification for Cont. Inpt. At this time patient will decompensate the placed in a lower level of care Discharge Planning To be determined Yoav Lloyd MD Jul 31, 2016 15:28
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
[2016-07-31 18:00] VITALS: BP 93/65; PULSE 100; RESP 18; TEMP 97.5; O2SAT 100
[2016-07-31] MEDS: QUEtiapine FUMARATE 25 MG TAB PO SCH (20:52)
[2016-08-01 05:45] VITALS: BP 134/88; PULSE 65; RESP 18; TEMP 97.4; O2SAT 95
[2016-08-01] MEDS: CARBIDOPA/LEVODOPA 25 MG/100 MG TAB PO SCH ×2 (05:48→15:11)
[2016-08-01] MEDS: INSULIN ASPART SUPPLEMENTAL SCALE SQ SCH ×2 (06:52→11:00)
[2016-08-01] MEDS ORDERED: VITA1000 PO (09:54)
[2016-08-01] MEDS ORDERED: DULO1CAP3 PO (09:54)
[2016-08-01] MEDS ORDERED: AMLO10 PO (09:54)
[2016-08-01] MEDS ORDERED: QUET1TAB7 PO (09:54)
[2016-08-01] MEDS ORDERED: CARB25TA9 PO (09:54)
[2016-08-01] MEDS ORDERED: ASPI-99 PO (09:54)
[2016-08-01] MEDS ORDERED: Lactulose Liq PO (09:54)
[2016-08-01] MEDS ORDERED: DOCU1CAP39 PO (09:54)
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
[2016-08-01] MEDS: DULoxetine HCl DR 60 MG CAP PO SCH (10:15)
[2016-08-01] MEDS: CHOLECALCIFEROL (VIT D3) 1000 UNIT TAB PO SCH (10:15)
[2016-08-01] MEDS: ASPIRIN EC 81 MG TABEC PO SCH (10:15)
[2016-08-01] MEDS: DOCUSATE SODIUM 100 MG CAP PO SCH (10:15)
[2016-08-01] MEDS: LACTULOSE SYRUP 20 GM/30 ML CUP PO SCH (10:15)
== END 2016-08-01 15:35 | DRG 57 ==
LOC: NEPE 09:41 → NEDA 14:49 → H250 15:51
PROVIDERS: ADMIT Psychiatry & Neurology Psychiatry; ATTEND Psychiatry & Neurology Psychiatry
DX: G30.9 Alzheimer's disease, unspecified (principal); N17.9 Acute kidney failure, unspecified; F02.81 Dementia in other diseases classified elsewhere, unspecified severity, with behavioral disturbance; E55.9 Vitamin D deficiency, unspecified; G20 Parkinson's disease; E11.9 Type 2 diabetes mellitus without complications; I10 Essential (primary) hypertension; D72.829 Elevated white blood cell count, unspecified; F31.9 Bipolar disorder, unspecified
CPT/HCPCS: 80048; 80053; 80061; 80307; 81001; 82306; 82550; 82607; 82948; 83036; 84443; 85025; 93005

== ENCOUNTER 2017-05-14 07:20 | Emergency (ER) | payer OTHER ==
[~2017-05-14] VITALS: Ht 177.8 cm; Wt 84.0 kg
[~2017-05-14 07:20] MED LIST: AMLO10 PO; ASPI1TAB56 PO; CARB25TA9 PO; DOCU1CAP39 PO; DULO1CAP3 PO; LORA-392 PO; Lactulose Liq PO; QUET1TAB7 PO; THERM PO; TYLE325T PO; VITA1000 PO
[2017-05-14 07:25] VITALS: BP 148/89; PULSE 71; RESP 18; TEMP 98.6; O2SAT 100
[2017-05-14] MEDS ORDERED: SERO100T PO (07:37)
[2017-05-14] MEDS ORDERED: NUED20CA PO (07:37)
[2017-05-14] MEDS ORDERED: HALO2TAB PO (07:37)
[2017-05-14] MEDS ORDERED: CIME200T23 PO (07:37)
[2017-05-14] MEDS ORDERED: SODIUM CHLORIDE 0.9% FLUSH 10 ML FLUSH IVF PRN (08:00)
--- NOTE | 2017-05-14 08:04 | PD ---
HPI Chief Complaint: Syncope/Near-Syncope Time Seen by Provider: 07:53 Travel History International Travel<30 days: No Contact w/Intl Traveler<30days: No Traveled to known affect area: No History of Present Illness HPI This is a [facility] patient with dementia and Parkinson's. He cannot provide much in the way of useful history or review of systems. He was [facility] to [facility] emergency [facility] the [facility] with a report that he had a syncopal episode. Patient is unaware of this. He says that he had some head pressure during the night but it is resolved and he feels fine now. He does not remember passing out. He denies fever or discomfort anywhere. Symptom severity at this time is mild. No alleviating factors. No exacerbating factors. PFSH Past Medical History Alzheimer's Disease: Yes Bipolar Disorder: Yes Dementia: Yes Diabetes: No Headaches: No Hypertension: Yes Neurologic: Yes (Hx of Parkinsons) Parkinson's Disease: Yes Psychiatric: Yes (Hx of diagnosis of Dementia) Tetanus Vaccination: > 5 Years Influenza Vaccination: Yes Past Surgical History Surgical History: Unable to Obtain Social History Alcohol Use: No Tobacco Use: No Substance Use: No Allergies-Medications (Allergen,Severity, Reaction): Coded Allergies: No Known Allergies (Unverified Adverse Reaction, Unknown, 05/14/17) Reported Meds & Prescriptions Reported Meds & Active Scripts Active Norvasc (Amlodipine Besylate) 10 Mg Tab 10 Mg PO DAILY [Lactulose Liq] 30 ML Syrp 30 Ml PO Q12HR Duloxetine DR (Duloxetine HCl) 60 Mg Capdr 60 Mg PO DAILY Dok (Docusate Sodium) 100 Mg Cap 100 Mg PO DAILY D 1000 (Cholecalciferol) 1,000 Unit Tab 1,000 Units PO DAILY Carbidopa-Levodopa 25-100 Mg Tab 1 Tab PO Q8HR Adult Aspirin EC Low Strength (Aspirin) 81 Mg Tabec 81 Mg PO DAILY Reported Tagamet Hb (Cimetidine) 200 Mg Tab 200 Mg PO BID Seroquel (Quetiapine Fumarate) 100 Mg Tab 100 Mg PO TID Nuedexta 20-10 mg (Dextromethorphan HBr-Quinidine) 20 Mg-10 Mg Cap 1 Cap PO BID Haloperidol 2 Mg Tab 2 Mg PO DAILY Tylenol (Acetaminophen) 325 Mg Tab 650 Mg PO Q4H PRN Thera M Plus (Multivitamins/Minerals Therapeutic) 1 Tab 1 Tab PO DAILY Review of Systems ROS Limitations: Clinical Condition, Poor Historian Physical Exam Narrative GENERAL: Well-nourished, well-developed patient in no apparent distress. SKIN: Focused skin assessment reveals no rash and nodules. Skin is Warm and dry. HEAD: Atraumatic. Normocephalic. EYES: Pupils equal and round. No scleral icterus. No injection or drainage. ENT: No nasal bleeding or discharge. Mucous membranes pink and moist. NECK: Trachea midline. No JVD. CARDIOVASCULAR: Regular rate and rhythm. No murmur appreciated. RESPIRATORY: No accessory muscle use. Clear to auscultation. Breath sounds equal bilaterally. GASTROINTESTINAL: Abdomen soft, non-tender, nondistended. Hepatic and splenic margins not palpable. MUSCULOSKELETAL: No obvious deformities. No clubbing. No cyanosis. No edema. NEUROLOGICAL: Awake and alert. No obvious cranial nerve deficits. Motor grossly within normal limits. Normal speech. PSYCHIATRIC: Appropriate mood and affect; insight and judgment normal. Data Data Last Documented VS Vital Signs Date Time Temp Pulse Resp B/P (MAP) Pulse Ox O2 Delivery O2 Flow Rate FiO2 05/14/17 07:28 71 18 100 Room Air 05/14/17 07:25 98.6 148/89 (108) Orders Orders Electrocardiogram (05/14/17 08:00) Basic Metabolic Panel (Bmp) (05/14/17 08:00) Complete Blood Count With Diff (05/14/17 08:00) Ecg Monitoring (05/14/17 08:00) Iv Access Insert/Monitor (05/14/17 08:00) Oximetry (05/14/17 08:00) Sodium Chloride 0.9% Flush (Ns Flush) (05/14/17 08:00) Sodium Chlor 0.9% 1000 Ml Inj (Ns 1000 M (05/14/17 10:30) Sodium Chlor 0.9% 1000 Ml Inj (Ns 1000 M (05/14/17 10:30) Labs Laboratory Tests Test 05/14/17 07:45 White Blood Count 8.1 TH/MM3 Red Blood Count 3.86 MIL/MM3 Hemoglobin 12.0 GM/DL Hematocrit 34.9 % Mean Corpuscular Volume 90.4 FL Mean Corpuscular Hemoglobin 31.0 PG Mean Corpuscular Hemoglobin Concent 34.3 % Red Cell Distribution Width 13.2 % Platelet Count 160 TH/MM3 Mean Platelet Volume 8.9 FL Neutrophils (%) (Auto) 61.5 % Lymphocytes (%) (Auto) 26.6 % Monocytes (%) (Auto) 9.8 % Eosinophils (%) (Auto) 1.8 % Basophils (%) (Auto) 0.3 % Neutrophils # (Auto) 5.0 TH/MM3 Lymphocytes # (Auto) 2.2 TH/MM3 Monocytes # (Auto) 0.8 TH/MM3 Eosinophils # (Auto) 0.1 TH/MM3 Basophils # (Auto) 0.0 TH/MM3 CBC Comment DIFF FINAL Differential Comment Blood Urea Nitrogen 42 MG/DL Creatinine 2.24 MG/DL Random Glucose 97 MG/DL Calcium Level 8.6 MG/DL Sodium Level 141 MEQ/L Potassium Level 4.3 MEQ/L Chloride Level 107 MEQ/L Carbon Dioxide Level 27.4 MEQ/L Anion Gap 7 MEQ/L Estimat Glomerular Filtration Rate 30 ML/MIN MDM Medical Decision Making Medical Screen Exam Complete: Yes Emergency Medical Condition: Yes Medical Record Reviewed: Yes Differential Diagnosis Vasovagal episode, cardiac arrhythmia, atypical migraine Narrative Course I have reviewed the patient's electronic medical record. This is a demented Parkinson patient reportedly had syncopal episode and at that time his blood pressure was reportedly 60 systolic Unclear why he would have been that low. Blood pressure here is 140s systolic He has no tachycardia or symptoms I reviewed his EKG which shows sinus rhythm without ectopy or ST elevation Extended cardiac monitoring reveals sinus rhythm without ectopy or tachycardia Lab studies sent I will observe him for a while Possibly had a vasovagal episode explaining his drop in blood pressure which was very transient. Was not abnormal here at all I reviewed his labs. CBC normal. Metabolic profile reveals a acute kidney injury. Usually his creatinine is normal and now is 2.4. BUN is also elevated suggesting there may be a prerenal cause I am giving him 2 L of normal saline IV After that I think he will be stable for [facility] -up with a physician there. His vitals have been normal here No arrhythmia found He is not been symptomatic at all Diagnosis Primary Impression: Syncope Qualified Codes: R55 - Syncope and collapse Additional Impression: Parkinson's disease dementia Qualified Codes: G20 - Parkinson's disease; F02.80 - Dementia in other diseases classified elsewhere without behavioral disturbance Additional Instructions: The patient was advised to follow up with their physician and return if they worsen. Med/Other Pt SpecificInfo: Other Disposition: 03 DISCHARGE TO SNF Condition: Stable Isrrael Humphries MD May 14, 2017 08:04
[2017-05-14 08:17] LABS: BASOPHIL % 0.3 % (0.0-2.0); EOSINOPHIL # 0.1 TH/MM3 (0-0.4); EOSINOPHIL % 1.8 % (0.0-4.0); HEMATOCRIT 34.9 % (39.0-51.0); LYMPH % 26.6 % (9.0-44.0); LYMPHOCYTE # 2.2 TH/MM3 (1.0-4.8); MEAN CELL VOLUME 90.4 FL (80.0-100.0); MEAN CORPUSCULAR HGB CONC 34.3 % (32.0-36.0); MEAN PLATELET VOLUME 8.9 FL (7.0-11.0); MONO % 9.8 % (0.0-8.0); MONOCYTE # 0.8 TH/MM3 (0-0.9); NEUT % 61.5 % (16.0-70.0); PLATELET COUNT 160 TH/MM3 (150-450); RED BLOOD COUNT 3.86 MIL/MM3 (4.50-5.90); RED CELL DISTRIBUTION WIDTH 13.2 % (11.6-17.2); WHITE BLOOD COUNT 8.1 TH/MM3 (4.0-11.0)
[2017-05-14 08:37] LABS: BICARBONATE 27.4 MEQ/L (21.0-32.0); CALCIUM 8.6 MG/DL (8.5-10.1); CREATININE 2.24 MG/DL (0.60-1.30)
[2017-05-14] MEDS ORDERED: SODIUM CHLOR 0.9% 1000 ML INJ 1,000 ML IV ONE ×2 (10:30)
[2017-05-14 11:04] VITALS: BP 153/92; PULSE 83; RESP 16; O2SAT 95
[2017-05-14 12:55] VITALS: BP 144/67; PULSE 80; RESP 16; O2SAT 96
--- NOTE | 2017-05-14 21:18 | EKG ---
Date Performed: 05/14/2017 Time Performed: 08:28:08 PTAGE: 61 years EKG: Sinus rhythm Since previous tracing, no significant change noted NORMAL ECG PREVIOUS TRACING : 07/29/2016 11.21 DOCTOR: Eli Chamberlain Interpretating Date/Time 05/14/2017 21:17:27
== END 2017-05-14 13:42 ==
LOC: NEPC 07:20
DX: R55 Syncope and collapse (principal); G20 Parkinson's disease; F02.80 Dementia in other diseases classified elsewhere, unspecified severity, without behavioral disturbance, psychotic disturbance, mood disturbance, and anxiety; G30.9 Alzheimer's disease, unspecified; F31.9 Bipolar disorder, unspecified; I10 Essential (primary) hypertension; Z79.82 Long term (current) use of aspirin; Z79.899 Other long term (current) drug therapy
CPT/HCPCS: 80048; 85025; 93005; 99284; J7030